=== PATIENT | female | born 1985 | race African-American/Black ===

== ENCOUNTER 2016-07-25 17:18 | Emergency (ER) | payer OTHER | END 2016-07-25 17:46 | disposition home or self-care (01) | LOC: BURERS 17:18 | DX: L29.9 Pruritus, unspecified (principal); F41.9 Anxiety disorder, unspecified; F32.9 Major depressive disorder, single episode, unspecified | CPT/HCPCS: 99282 ==

== ENCOUNTER 2018-08-07 19:08 | Emergency (ER) | payer OTHER | END 2018-08-07 20:07 | disposition home or self-care (01) | LOC: BURERS 19:08 | DX: S63.501A Unspecified sprain of right wrist, initial encounter (principal); F41.9 Anxiety disorder, unspecified; F32.9 Major depressive disorder, single episode, unspecified; V43.52XA Car driver injured in collision with other type car in traffic accident, initial encounter | CPT/HCPCS: 99283 ==

== ENCOUNTER 2020-12-11 13:15 | Emergency (ER) | payer OTHER, SELFPAY ==
[2020-12-11] MEDS ORDERED: Ondansetron PF 4 MG/2 ML Vial ONE (13:28)
[2020-12-11] MEDS ORDERED: Morphine 4 MG/ML VIAL ONE ×2 (13:28→14:57)
[2020-12-11 13:36] LABS: #Basophils 0.1 thou/uL (0.0-0.2); #Eosinphils 0.1 thou/uL (0.0-0.7); #Lymphocytes 3.1 thou/uL (1.20-3.40); #Monocytes 0.5 thou/uL (0.11-0.59); #Neutrophils 2.7 thou/uL (1.40-6.50); %Basophils 1.1 % (0.0-1.0); %Eosinophils 1.2 % (0.0-10.0); %Lymphocytes 48.1 % (21.0-51.0); %Neutrophils 41.6 % (42.0-75.0); Hemoglobin 14.1 g/dL (12.0-16.0); Mean Corpuscular HGB CONC 33.5 g/dL (32.0-36.0); Mean Corpuscular Hemoglobin 30.9 pg (27.0-31.0); Mean Corpuscular Volume 92.4 fL (78.0-98.0); Platelet Count 378 thou/uL (130-400); RBC Distribution Width 11.5 % (11.5-14.5); Red Blood Cell (RBC) Count 4.55 mill/uL (4.20-5.40); White Blood Cell (WBC) Count 6.5 thou/uL (4.8-10.8)
[2020-12-11 13:45] LABS: Prothrombin Time 13.5 sec (12.0-14.7)
[2020-12-11 13:50] LABS: ALT (SGPT) 15 U/L (8-55); AST (SGOT) 15 U/L (5-34); Albumin 4.6 g/dL (3.5-5.0); Alkaline Phosphatase 65 U/L (40-110); Anion Gap 17 mmol/L (10-20); BUN (Urea Nitrogen) 10 mg/dL (7.0-18.7); Bilirubin, Total 1.1 mg/dL (0.2-1.2); Calc. Creatinine Clearance 0 mL/min (70-130); Calcium 9.8 mg/dL (7.8-10.44); Carbon Dioxide 23 mmol/L (22-29); Chloride 106 mmol/L (98-107); Globulin 3.8 g/dL (2.4-3.5); Glucose 87 mg/dL (70-105); Potassium 3.6 mmol/L (3.5-5.1); Protein, Total 8.4 g/dL (6.0-8.3); Sodium 142 mmol/L (136-145)
[2020-12-11] MEDS ORDERED: Bacitracin 1 PK ONE (14:11)
[2020-12-11] MEDS ORDERED: Tetracaine 0.5% PF 4 ML BOT ONE (14:23)
[2020-12-11] MEDS ORDERED: Fluorescein Opthalmic Strip ONE (14:23)
== END 2020-12-11 15:05 | disposition home or self-care (01) ==
LOC: BURERS 13:15
DX: T20.14XA Burn of first degree of nose (septum), initial encounter (principal); T20.16XA Burn of first degree of forehead and cheek, initial encounter; T28.0XXA Burn of mouth and pharynx, initial encounter; T26.00XA Burn of unspecified eyelid and periocular area, initial encounter; T20.10XA Burn of first degree of head, face, and neck, unspecified site, initial encounter; S05.02XA Injury of conjunctiva and corneal abrasion without foreign body, left eye, initial encounter; S70.312A Abrasion, left thigh, initial encounter; X04.XXXA Exposure to ignition of highly flammable material, initial encounter
CPT/HCPCS: 71045; 80053; 85025; 85610; 93005; 96374; 96375; 96376; J2270; J2405

== ENCOUNTER 2021-04-05 17:37 | Emergency (ER) | payer SELFPAY ==
[2021-04-05 18:19] LABS: #Lymphocytes 2.3 thou/uL (1.20-3.40); #Monocytes 0.4 thou/uL (0.11-0.59); #Neutrophils 2.5 thou/uL (1.40-6.50); %Basophils 0.7 % (0.0-1.0); %Eosinophils 0.7 % (0.0-10.0); %Lymphocytes 44.1 % (21.0-51.0); %Monocytes 7.8 % (0.0-10.0); %Neutrophils 46.8 % (42.0-75.0); Hemoglobin 13.1 g/dL (12.0-16.0); Mean Corpuscular HGB CONC 33.3 g/dL (32.0-36.0); Mean Corpuscular Hemoglobin 30.5 pg (27.0-31.0); Mean Corpuscular Volume 91.7 fL (78.0-98.0); Mean Platelet Volume 6.1 fL (7.4-10.4); Platelet Count 247 thou/uL (130-400); RBC Distribution Width 11.2 % (11.5-14.5); Red Blood Cell (RBC) Count 4.29 mill/uL (4.20-5.40); White Blood Cell (WBC) Count 5.3 thou/uL (4.8-10.8)
[2021-04-05] MEDS ORDERED: Benzonatate 100 MG CAP ONE ×2 (19:01)
[2021-04-05] MEDS ORDERED: Dexamethasone 4 MG TAB ONE (19:01)
== END 2021-04-05 19:08 | disposition home or self-care (01) ==
LOC: BURERS 17:37
DX: R07.81 Pleurodynia (principal); Z20.822 Contact with and (suspected) exposure to COVID-19
CPT/HCPCS: 36415; 71045; 85025; 85379; J8540